=== PATIENT | male | born 1960 | race Caucasian/White ===

== ENCOUNTER → 2016-05-20 | Day surgery (SDC) | payer OTHER ==
[2016-05-10 10:27] VITALS: Ht 189.2 cm; Wt 125.0 kg
[2016-05-10 16:36] LABS: BASO % 0.3 %; BASO ABS # 0.03 K/uL (0-0.2); COMPLETE YES; EOS % 2.3 %; HEMATOCRIT 44.7 % (42-52); IG% 0.4 %; LYMPH % 27.3 %; LYMPH ABS # 2.54 K/uL (1.2-3.4); MEAN CELL VOLUME 86.3 fL (80-100); MEAN CORPUSCULAR HEMOGLOBIN 30.5 pg (25-34); MEAN CORPUSCULAR HGB CONC 35.3 g/dl (32-36); MEAN PLATELET VOLUME 10.8 fL (7.4-10.4); MONO % 4.7 %; PLATELET COUNT 269 K/uL (130-400); RED BLOOD COUNT 5.18 M/uL (4.7-6.1)
[2016-05-10 16:59] LABS: BUN/CREATININE RATIO 7.5 (10-20); CREATININE 1.1 mg/dl (0.60-1.40); POTASSIUM 3.8 mmol/L (3.5-5.1)
[~2016-05-20] VITALS: Ht 189.2 cm; Wt 125.0 kg
[~2016-05-20] MED LIST: ASPI81TA28 PO; ATROPINE SULFATE 0.1 MG/ML 5ML SYR IV PRN; CLINDAMYCIN PHOS 150 MG/ML 2 ML VIAL IV SCH; DEXAMETHASONE SOD INJ 4 MG/ML VIAL IV PRN; DEXAMETHASONE SOD INJ 4 MG/ML VIAL ONE; EpHEDrine SULFATE INJ 50 MG/ML AMP IV PRN; EpINEphrine INJ 1MG/ML AMP 1 MG/ML AMP ONE; FENTANYL CITRATE INJ 50 MCG/1 ML 2 ML VIAL IV PRN; FENTANYL CITRATE INJ 50 MCG/1 ML 2 ML VIAL ONE; HYDR-5688 PO; KETOROLAC TROMETHAMINE 30 MG/ML VIAL IV. PRN; KETOROLAC TROMETHAMINE 30 MG/ML VIAL ONE; LABETALOL HCL IV 5 MG/ML 20ML IV PRN; LACTATED RINGER'S 1000ML 1,000 ML IV SCH; LIDOCAINE HCL 2% 2 ML VIAL (20MG/ML) ONE; METOCLOPRAMIDE HCL INJ 5 MG/ML 2 ML VIAL IV PRN; MIDAZOLAM HCL 1 MG/ML 2ML VIAL ONE; MoRPHine SULFATE 10 MG/ML CARP/VIAL IV PRN; ONDANSETRON INJ 2 MG/ML 2 ML VIAL IV PRN; ONDANSETRON INJ 2 MG/ML 2 ML VIAL ONE; OXYCODONE/ACETAMINOPHEN 5-325 TAB PO PRN; PHENYLEPHRINE 100MCG/ML 5ML SYR IV PRN; PROPOFOL IV EMULSION 10 MG/ML 20 ML VIAL IV ONE; ROPIVACAINE 0.5% 5 MG/ML 30 ML VIAL ONE; SODIUM CHLORIDE 0.9% 1000ML 1,000 ML IV SCH
--- NOTE | 2016-05-20 07:00 | History & Physical Bridge - [place] ---
H&P Re-Evaluation Bridge Note: I have examined the patient, reviewed the History & Physical and in the interval since the performance of the History & Physical I have noted the following changes of clinical significance: No changes noted
--- NOTE | 2016-05-20 08:29 | Discharge Instructions-SurgCtr ---
Discharge Instructions Visit Reason for Visit: Left Knee Acute Medial Meniscal Tear Discharge Discharge Diagnosis / Problem: SAME ABOVE Discharge Goals Goal(s): Decrease discomfort, Improve function Activity Recommendations Activity Limitations: as noted below Lifting Limitations: until after follow-up appointment Exercise/Sports Limitations: until after follow-up appointment Driving or Machine Use: WHEN PAIN IS CONTROLLED AND OFF OF PAIN MEDICATION Weightbearing Status: Left weightbearing (as tolerated) Anesthesia . Post Anesthesia Instructions: If you have had General Anesthesia or IV Sedation: * Do not drive today. * Resume driving when surgeon permits. * Do not make important decisions or sign legal documents today. * Call surgeon for: 1. Temperature elevations greater than 101 degrees F. 2. Uncontrollable pain. 3. Excessive bleeding. 4. Persistent nausea and vomiting. 5. Medication intolerance (nausea, vomiting or rash). * For nausea and vomiting use only clear liquids such as: tea, soda, bouillon until nausea subsides, then gradually increase diet as tolerated. * If you have any concerns or questions, call your surgeon's office. If physician is unavailable and it is an emergency, call 911 or go to the nearest emergency room. . Instructions / Follow-Up Instructions / Follow-Up MEDICATIONS: * Resume previous medications unless instructed otherwise by your surgeon. * Always take pain medication on a full stomach or with food to avoid upset stomach. * Do not drink alcohol or drive while taking narcotics. * Ibuprofen or Tylenol may be taken if narcotic not needed. SPECIAL CARE INSTRUCTIONS: __ None _X_ Keep extremity elevated and iced x 48 hours; apply ice 20-30 minutes 8-10 times/day. May remove at night. _X_ Crutches _X_ May discard when able __ Brace/Post-op shoe __ 24 hrs/day __ Remove at night _X_ Dressing __ Maintain until seen in office, may shower with plastic over site _X_ Remove dressings in 48 hours and then may shower _X_ Cover incisions with band-aids after showering __ Do not remove steri-strips Call physician if chills or temperature rises above 102 degrees or pain unrelieved by prescribed pain medications. Office [phone] Diet Recommendations Home Diet: no limitations Fluid Restriction: None Procedures Procedures Performed: Left Knee Arthroscopy, Medial Meniscectomy Pending Studies Studies pending at discharge: no Work Instructions Return To Work: after follow-up Medical Emergencies . Who to Call and When: Medical Emergencies: If at any time you feel your situation is an emergency, please call 911 immediately. . Non-Emergent Contact Non-Emergency issues call your: Primary Care Provider Call Non-Emergent contact if: you have a fever, temperature is above 101.5 . . "Provider Documentation" section prepared by Ej Beauchamp.
--- NOTE | 2016-05-20 08:40 | OPERATIVE REPORT ---
DATE OF OPERATION: 05/20/2016 PREOPERATIVE DIAGNOSIS: Medial meniscal tear of the left knee. POSTOPERATIVE DIAGNOSIS: Same. PROCEDURE: Left knee diagnostic arthroscopy with partial medial meniscectomy. SURGEON: Dr. Rico Mixon. SENIOR SYSTEMS PROGRAMMER: Aurelio Beauchamp PA-C, whose assistance was necessary for positioning of the leg and helping with instrumentation. ANESTHESIA: General. COMPLICATIONS: None. CONDITION: Stable to PACU. INDICATIONS: Miguel is a pleasant 55-year-old male who presented to my office with a work-related injury to his left knee. MRI and clinical examination were diagnostic for medial meniscal tear of the left knee. After failing extensive conservative treatment, he elected to undergo arthroscopy. On 05/20/2016, he arrived at [facility] for the above procedure. He was seen in the preoperative holding area and the operative extremity was identified and signed. He was given a preoperative antibiotic and taken back to the operating room, laid on table in supine position, and put under general anesthesia. The left knee was prepped and draped in sterile fashion. A timeout was done, and the patient and operative extremity was properly identified. A scope was introduced in the lateral parapatellar portal. Diagnostic arthroscopy showed no cartilage damage within the trochlea. There were no loose bodies in the suprapatellar pouch. The scope was brought into the medial compartment, a medial parapatellar portal was made under direct visualization. There was a tear of the posterior medial meniscus. It was a horizontal tear and also had a small radial component. A shaver was used to remove the unstable pieces of meniscus and taken back to stable margins. A probe was used to confirm complete resection of the unstable fragments. There was no cartilage damage in the medial compartment. ACL and PCL were intact. The scope was brought in the lateral compartment and there was no meniscus or cartilage damage laterally. The scope was then placed in the contralateral portal. Repeat diagnostic arthroscopy showed no additional pathology. Arthroscopic instruments were removed from the knee. Portal sites were closed with 3-0 nylon. The knee was then injected with 30 mL of Naropin with epinephrine and Toradol. He was then placed in a soft compressive dressing, extubated, transferred to a litter and taken to the postanesthesia care unit in stable condition. He tolerated the procedure well. I attest to the content of the Intraoperative Record and any orders documented therein. Any exceptio ns are noted below.
--- NOTE | 2016-05-20 09:12 | Anesthesia Progress Nt - [facility] ---
Anesthesia Post Op Note Date & Time May 20, 2016 at 09:13 Vital Signs Pain Intensity: 0 Vital Signs Past 12 Hours Date Time Temp Pulse Resp B/P Pulse Ox O2 Delivery O2 Flow Rate FiO2 05/20/16 09:04 152/70 05/20/16 09:03 57 11 95 05/20/16 09:03 58 11 05/20/16 09:00 36.7 58 12 152/70 96 Room Air 05/20/16 08:59 171/93 05/20/16 08:58 59 13 05/20/16 08:58 57 13 96 05/20/16 08:54 144/80 05/20/16 08:53 59 12 96 05/20/16 08:53 59 12 05/20/16 08:49 129/77 05/20/16 08:48 54 0 100 05/20/16 08:48 55 0 05/20/16 08:44 135/81 05/20/16 08:43 56 0 05/20/16 08:43 56 0 100 05/20/16 08:39 142/70 05/20/16 08:38 62 15 100 05/20/16 08:38 63 15 05/20/16 08:34 128/79 05/20/16 08:33 58 9 05/20/16 08:33 58 9 98 05/20/16 08:29 147/81 05/20/16 08:28 36.2 63 12 143/82 99 Mask 6 05/20/16 08:28 64 05/20/16 08:28 64 96 05/20/16 06:46 36.4 63 20 140/96 98 Room Air Notes Mental Status: alert / awake / arousable, participated in evaluation Pt Amnestic to Procedure: Yes Nausea / Vomiting: adequately controlled Pain: adequately controlled Airway Patency, RR, SpO2: stable & adequate BP & HR: stable & adequate Hydration State: stable & adequate Anesthetic Complications: no major complications apparent
[2016-05-20 09:14] VITALS: TEMP 36.4
[2016-05-20 09:38] VITALS: BP 158/90; PULSE 59; O2SAT 97
== END | disposition home or self-care (01) ==
LOC: X.SURG 06:37
PROVIDERS: ATTEND Orthopaedic Surgery
DX: S83.242A Other tear of medial meniscus, current injury, left knee, initial encounter (principal); X58.XXXA Exposure to other specified factors, initial encounter; K21.9 Gastro-esophageal reflux disease without esophagitis; G47.30 Sleep apnea, unspecified; Z90.49 Acquired absence of other specified parts of digestive tract; Y93.89 Activity, other specified; Y92.89 Other specified places as the place of occurrence of the external cause; Y99.0 Civilian activity done for income or pay; Z98.890 Other specified postprocedural states; Z79.82 Long term (current) use of aspirin

== ENCOUNTER → 2016-06-17 | Outpatient (CLI) | payer OTHER ==
[~2016-06-17] MED LIST changes: -ATROPINE SULFATE 0.1 MG/ML 5ML SYR IV PRN; -CLINDAMYCIN PHOS 150 MG/ML 2 ML VIAL IV SCH; -DEXAMETHASONE SOD INJ 4 MG/ML VIAL IV PRN; -DEXAMETHASONE SOD INJ 4 MG/ML VIAL ONE; -EpHEDrine SULFATE INJ 50 MG/ML AMP IV PRN; -EpINEphrine INJ 1MG/ML AMP 1 MG/ML AMP ONE; -FENTANYL CITRATE INJ 50 MCG/1 ML 2 ML VIAL IV PRN; -FENTANYL CITRATE INJ 50 MCG/1 ML 2 ML VIAL ONE; -KETOROLAC TROMETHAMINE 30 MG/ML VIAL IV. PRN; -KETOROLAC TROMETHAMINE 30 MG/ML VIAL ONE; -LABETALOL HCL IV 5 MG/ML 20ML IV PRN; -LACTATED RINGER'S 1000ML 1,000 ML IV SCH; -LIDOCAINE HCL 2% 2 ML VIAL (20MG/ML) ONE; -METOCLOPRAMIDE HCL INJ 5 MG/ML 2 ML VIAL IV PRN; -MIDAZOLAM HCL 1 MG/ML 2ML VIAL ONE; -MoRPHine SULFATE 10 MG/ML CARP/VIAL IV PRN; -ONDANSETRON INJ 2 MG/ML 2 ML VIAL IV PRN; -ONDANSETRON INJ 2 MG/ML 2 ML VIAL ONE; -OXYCODONE/ACETAMINOPHEN 5-325 TAB PO PRN; -PHENYLEPHRINE 100MCG/ML 5ML SYR IV PRN; -PROPOFOL IV EMULSION 10 MG/ML 20 ML VIAL IV ONE; -ROPIVACAINE 0.5% 5 MG/ML 30 ML VIAL ONE; -SODIUM CHLORIDE 0.9% 1000ML 1,000 ML IV SCH
[2016-06-17 18:53] LABS: INFLUENZA A PCR Neg for Influ A (NEG); INFLUENZA B PCR Neg for Influ B (NEG)
== END | disposition home or self-care (01) ==
LOC: C.LABBC 15:18
PROVIDERS: ATTEND Family Medicine
DX: J06.9 Acute upper respiratory infection, unspecified (principal)

== ENCOUNTER 2016-07-02 14:18 | Observation (INO) | payer OTHER ==
[~2016-07-02] VITALS: Ht 188 cm; Wt 134.0 kg
[2016-07-02] MEDS ORDERED: ALUMINUM/MAGNESIUM SUSP 30 ML UDC PO STA (15:38)
[2016-07-02] MEDS ORDERED: ASPIRIN 81 MG CHEW PO STA (15:38)
--- NOTE | 2016-07-02 15:41 | EMERGENCY ROOM VISIT NOTE ---
History Report prepared by Wagner: Melecio Hinson Under the Supervision of: Dr. Leobardo Weiss D.O. First contact with patient: 15:26 Chief Complaint: CHEST PAIN Stated Complaint: CHEST PAIN Nursing Triage Summary: eft sided chest pain for several days that gets worse with deep breathing + SOB and [place] no nausea pt states that he cometimes gets pain into his left side of his neck and jaw no previous cardiac hx History of Present Illness The patient is a 55 year old male who presents to the Emergency Room with complaints of episodes of left-sided chest pain that started a week ago. He says he has episodes that last a couple minutes, once or twice per day. He describes the pain as sharp. During the episodes, he gets short of breath. He says that he has never had this kind of chest pain before. The patient says the pain radiated up to his neck and jaw during a couple of the episodes. He does not have any pain currently. He denies any abdominal pain or leg swelling. The patient notes that he had a stress test years ago. He is not currently on any daily medications. He was recently taken off of Lisinopril by his doctor. The patient is an ex-smoker, and drinks occasional alcohol. He has no history of clots in his lungs or legs. Source of History: patient Onset: A week ago Position: chest (left) Quality: sharp Timing: other (episodes) Associated Symptoms: + SOB, + neck pain, No abdominal pain Note: Associated symptoms: Jaw pain during a couple of episodes. Denies leg swelling. Review of Systems See HPI for pertinent positives & negatives. A total of 10 systems reviewed and were otherwise negative. Past Medical & Surgical Medical Problems: (1) Benign hypertension (2) Ulcerative colitis Family History Cancer Social History Smoking Status: Former Smoker Alcohol Use: none Drug Use: none Marital Status: Housing Status: lives with family Occupation Status: employed Current/Historical Medications No Active Prescriptions or Reported Meds Allergies Coded Allergies: Penicillins (Verified Allergy, Unknown, UNSURE, 05/20/16) Physical Exam Vital Signs Date Time Temp Pulse Resp B/P Pulse Ox O2 Delivery O2 Flow Rate FiO2 07/02/16 17:00 63 16 168/91 93 Room Air 07/02/16 16:03 96 Room Air 07/02/16 16:03 96 Room Air 07/02/16 15:51 66 07/02/16 15:49 66 16 181/95 96 07/02/16 14:21 36.7 66 18 177/86 95 Room Air Pain Rating (0-10): 1.0 Physical Exam GENERAL: Patient is awake, alert, and in no acute distress. Patient is resting comfortably and showing no signs of anxiety EYES: The conjunctivae are clear. The pupils are round and reactive. EARS, NOSE, MOUTH AND THROAT: The nose is without any evidence of any deformity. Mucous membranes are moist tongue is midline NECK: The neck is nontender and supple. RESPIRATORY: Normal respiratory effort is noted there is no evidence of wheezing rhonchi or rales CARDIOVASCULAR: Regular rate and rhythm noted there no murmurs rubs or gallops normal S1 normal S2 GASTROINTESTINAL: The abdomen is soft. Bowel sounds are present in all quadrants. Abdomen is nontender MUSCULOSKELETAL/EXTREMITIES: There is no evidence of gross deformity full range of motion is noted in the hips and shoulders SKIN: There is no obvious evidence of any rash. There are no petechiae, pallor or cyanosis noted. NEUROLOGIC: Patient is awake alert and oriented x3. Medical Decision & Procedures ER Provider Diagnostic Interpretation: X-ray results as stated below per interpretation by me and the radiologist. CHEST ONE VIEW PORTABLE CLINICAL HISTORY: CHEST PAIN dyspnea COMPARISON STUDY: 03/27/2016 FINDINGS: The bones soft tissues and hemidiaphragms are normal. The cardiomediastinal silhouette is normal. The lungs are clear. The pulmonary vasculature is normal. IMPRESSION: Negative chest. Electronically signed by: Denis Dias M.D. 07/02/2016 3:53 PM Dictated Date/Time: 07/02/2016 3:52 PM Laboratory Results 07/02/16 16:00 Red Blood Count 5.14, Mean Corpuscular Volume 84.0, Mean Corpuscular Hemoglobin 30.2, Mean Corpuscular Hemoglobin Concent 35.9, Mean Platelet Volume 10.3, Neutrophils (%) (Auto) 65.9, Lymphocytes (%) (Auto) 24.4, Monocytes (%) (Auto) 7.3, Eosinophils (%) (Auto) 1.7, Basophils (%) (Auto) 0.4, Neutrophils # (Auto) 6.10, Lymphocytes # (Auto) 2.26, Monocytes # (Auto) 0.68, Eosinophils # (Auto) 0.16, Basophils # (Auto) 0.04 07/02/16 16:00 Test 07/02/16 16:00 07/02/16 16:05 White Blood Count 9.27 K/uL (4.8-10.8) Red Blood Count 5.14 M/uL (4.7-6.1) Hemoglobin 15.5 g/dL (14.0-18.0) Hematocrit 43.2 % (42-52) Mean Corpuscular Volume 84.0 fL (80-100) Mean Corpuscular Hemoglobin 30.2 pg (25-34) Mean Corpuscular Hemoglobin Concent 35.9 g/dl (32-36) Platelet Count 258 K/uL (130-400) Mean Platelet Volume 10.3 fL (7.4-10.4) Neutrophils (%) (Auto) 65.9 % Lymphocytes (%) (Auto) 24.4 % Monocytes (%) (Auto) 7.3 % Eosinophils (%) (Auto) 1.7 % Basophils (%) (Auto) 0.4 % Neutrophils # (Auto) 6.10 K/uL (1.4-6.5) Lymphocytes # (Auto) 2.26 K/uL (1.2-3.4) Monocytes # (Auto) 0.68 K/uL (0.11-0.59) Eosinophils # (Auto) 0.16 K/uL (0-0.5) Basophils # (Auto) 0.04 K/uL (0-0.2) RDW Standard Deviation 38.4 fL (36.4-46.3) RDW Coefficient of Variation 12.7 % (11.5-14.5) Immature Granulocyte % (Auto) 0.3 % Immature Granulocyte # (Auto) 0.03 K/uL (0.00-0.02) Prothrombin Time 10.6 SECONDS (9.0-12.0) Prothromb Time International Ratio 1.0 (0.9-1.1) Activated Partial Thromboplast Time 26.1 SECONDS (21.0-31.0) Partial Thromboplastin Ratio 1.0 Anion Gap 8.0 mmol/L (3-11) Est Creatinine Clear Calc Drug Dose 121.5 ml/min Estimated GFR () 97.8 Estimated GFR (Non- 84.4 BUN/Creatinine Ratio 11.8 (10-20) Calcium Level 9.0 mg/dl (8.5-10.1) Total Bilirubin 0.5 mg/dl (0.2-1) Direct Bilirubin < 0.1 mg/dl (0-0.2) Aspartate Amino Transf (AST/SGOT) 19 U/L (15-37) Alanine Aminotransferase (ALT/SGPT) 53 U/L (12-78) Alkaline Phosphatase 89 U/L (45-117) Total Creatine Kinase 90 U/L (39-308) Creatine Kinase MB 0.6 ng/ml (0.5-3.6) Creatine Kinase MB Ratio 0.7 (0-3.0) Total Protein 7.0 gm/dl (6.4-8.2) Albumin 3.7 gm/dl (3.4-5.0) Lipase 105 U/L (73-393) Bedside Troponin I 0.000 ng/ml (0-0.045) Laboratory results per my review. Medications Administered Medications (Trade) Dose Ordered Sig/[place] Route Start Time Stop Time Status Last Admin Dose Admin Aspirin (Aspirin Chew) 324 mg NOW STAT PO 07/02/16 15:38 07/02/16 15:39 DC 07/02/16 16:24 324 MG Al Hydroxide/Mg Hydroxide (Maalox Susp) 30 ml NOW STAT PO 07/02/16 15:38 07/02/16 15:39 DC 07/02/16 16:24 30 ML ECG Indication: chest pain Rate (beats per minute): 65 Rhythm: normal sinus Findings: no ectopy, other (high lateral ST depressions with T-wave inversions noted, no acute ST segment abnormalities) Comparison ECG Date: changes are worsened compred to 05/10/16 Change: Repeat ECG: Normal sinus rhythm at 68 bpm, no ectopy, no acute ST segment abnormalities. Resolution of earlier noted ST abnormalities. 2nd Repeat ECG: Normal sinus rhythm at 60 bpm, no ectopy, no acute ST segment abnormalities. ED Course 1526: The patient was evaluated in room B4A. A complete history and physical examination were performed. 8: Ordered Maalox Susp 30 ml PO, Aspirin Chew 324 mg PO. 1648: I reevaluated the patient and he is resting comfortably. The patient verbally expressed understanding and agreement with the treatment plan. The patient will be evaluated for further treatment. 1700: I discussed the patient with Dr. Francisco [facility]. He will evaluate the patient for further treatment. Medical Decision Differential diagnosis: Etiologies such as cardiac ischemia, aortic dissection, pulmonary embolism, pneumonia, pneumothorax, musculoskeletal, infections, pericarditis, myocarditis , esophageal rupture, gastrointestinal, as well as others were entertained. Nursing notes reviewed. The patient is a 55-year-old male who presented to the emergency department for left-sided chest pressure. The patient has a history of hypertension. He is currently not taking medications for hypertension because of insurance issues. He started to notice left-sided chest pain which was sometimes noted in the left neck left jaw and left shoulder. The patient had an EKG in triage which revealed ischemic changes in the high lateral lead. This was repeated and showed improvement of ST segment abnormalities. The patient's pain appears to be improved at this time as well. He was treated with aspirin in the emergency department. He had multiple EKGs. His final EKG shows normal sinus rhythm. I discussed the patient's laboratory and radiographic studies with him. I also described the limitations of the emergency department workup for chest pain with him. Given his ischemic changes on EKG I do feel he would be a better candidate for inpatient workup. For this reason I discussed his case with the on -call [facility] hospitalist group. They've agreed to evaluate the patient in the emergency department for further management and disposition. Consults Time Called: 1650 Consulting Physician: Dr. Francisco perez Returned Call: 1700 I discussed the patient with Dr. Francisco perez. He will evaluate the patient for further treatment. Impression Primary Impression: Chest pain Additional Impression: Abnormal EKG Scribe Attestation The scribe's documentation has been prepared under my direction and personally reviewed by me in its entirety. I confirm that the note above accurately reflects all work, treatment, procedures, and medical decision making performed by me. Departure Information Dispostion Being Evaluated By Hospitalist Prescriptions No Active Prescriptions or Reported Meds Referrals Wilmer Grant D.O.Int.Med. (PCP) Patient Instructions [facility] Problem Qualifiers Primary Impression: Chest pain Chest pain type: unspecified Qualified Codes: R07.9 - Chest pain, unspecified
--- NOTE | 2016-07-02 15:55 | DIAGNOSTIC IMAGING REPORT ---
CHEST ONE VIEW PORTABLE CLINICAL HISTORY: CHEST PAIN dyspnea COMPARISON STUDY: 03/27/2016 FINDINGS: The bones soft tissues and hemidiaphragms are normal. The cardiomediastinal silhouette is normal. The lungs are clear. The pulmonary vasculature is normal. IMPRESSION: Negative chest. Electronically signed by: Denis Dias M.D. 07/02/2016 3:53 PM Dictated Date/Time: 07/02/2016 3:52 PM
[2016-07-02 16:21] LABS: BASO % 0.4 %; BASO ABS # 0.04 K/uL (0-0.2); COMPLETE YES; EOS % 1.7 %; HEMATOCRIT 43.2 % (42-52); IG% 0.3 %; LYMPH % 24.4 %; LYMPH ABS # 2.26 K/uL (1.2-3.4); MEAN CORPUSCULAR HEMOGLOBIN 30.2 pg (25-34); MEAN CORPUSCULAR HGB CONC 35.9 g/dl (32-36); MEAN PLATELET VOLUME 10.3 fL (7.4-10.4); MONO % 7.3 %; NEUT % 65.9 %; PLATELET COUNT 258 K/uL (130-400); RED BLOOD COUNT 5.14 M/uL (4.7-6.1); WHITE BLOOD COUNT 9.27 K/uL (4.8-10.8)
[2016-07-02 16:30] LABS: PROTHROMBIN TIME (PATIENT) 10.6 SECONDS (9.0-12.0)
[2016-07-02 16:43] LABS: ALT/SGPT 53 U/L (12-78); BLOOD UREA NITROGEN 12 mg/dl (7-18); BUN/CREATININE RATIO 11.8 (10-20); CARBON DIOXIDE 29 mmol/L (21-32); CHLORIDE 107 mmol/L (98-107); GLUCOSE 109 mg/dl (70-99)
[2016-07-02 16:48] LABS: ALKALINE PHOSPHATASE 89 U/L (45-117)
[2016-07-02 17:00] LABS: SODIUM 144 mmol/L (136-145)
[2016-07-02 17:02] LABS: AST/SGOT 19 U/L (15-37); CKMB/CK RATIO 0.7 (0-3.0)
[2016-07-02] MEDS ORDERED: HydrALAZINE HCL 20 MG/ML VIAL IV. PRN (19:00)
[2016-07-02] MEDS ORDERED: ACETAMINOPHEN 325 MG TAB PO PRN (19:00)
[2016-07-02] MEDS ORDERED: POLYETHYLENE (MIRALAX) 17 GM PACK PO PRN (19:00)
[2016-07-02] MEDS ORDERED: NITROGLYCERIN 0.4 MG SL PER TAB CHARGE SL PRN (19:00)
[2016-07-02] MEDS ORDERED: MAGNESIUM HYDROXIDE SUSP 30 ML UDC PO PRN (19:00)
[2016-07-02] MEDS ORDERED: ALUMINUM/MAGNESIUM/SIMETH (MAALOX MAX) 30 ML UDC PO PRN (19:00)
[2016-07-02] MEDS ORDERED: ONDANSETRON INJ 2 MG/ML 2 ML VIAL IV PRN (19:00)
--- NOTE | 2016-07-02 19:10 | History and Physical ---
History & Physical Date & Time of Service: Jul 02, 2016 at 18:53 Chief Complaint: Chest Pain Primary Care Physician: Wilmer Grant D.O.Int.Med. History of Present Illness Source: family, clinic records, hospital records Patient is a pleasant 55 y/o male, with PMHx of HTN, hyperlipidemia, prediabetic , and obesity, who presented to the ED because intermittent left-sided chest discomfort since 06/28. Pain is located under left breast. He describes the discomfort as a sharp pain and lasting approximately 5 minutes. Denies any exacerbating/alleviating factors. Patient recalls one episode where the pain radiated to his left jaw/neck. Currently, patient states he is feeling well with no chest discomfort. Patient admits to a h/o of HTN but states a few months back he started walking more and discontinued his medication. He denied any other PMHx (obtained additional information from [employer]). Patient admits to associated dizziness with chest discomfort. Patient denies any fever, chills, sweats, lightheadedness, vision changes, palpitations, edema, SOB, wheezing, cough, abdominal pain, nausea, vomiting, diarrhea, urinary symptoms, melena, numbness/tingling, weakness, muscle/joint pain, anxiety/depression, active bleeding, or new skin discoloration/changes. 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 ) Immunizations History of Influenza Vaccine: No History of Tetanus Vaccine?: No History of Pneumococcal: No History of Hepatitis B Vaccine: No Multi-Drug Resistant Organisms History of MDRO: No Allergies Coded Allergies: Penicillins (Verified Allergy, Unknown, UNSURE, 05/20/16) Home Medications No Active Prescriptions or Reported Meds Physical Exam Vital Signs Date Time Temp Pulse Resp B/P Pulse Ox O2 Delivery O2 Flow Rate FiO2 07/02/16 17:50 62 16 156/89 95 07/02/16 17:00 63 16 168/91 93 Room Air 07/02/16 16:03 96 Room Air 07/02/16 16:03 96 Room Air 07/02/16 15:51 66 07/02/16 15:49 66 16 181/95 96 07/02/16 14:21 36.7 66 18 177/86 95 Room Air General Appearance: no apparent distress, + obese Head: normocephalic, atraumatic Eyes: normal inspection ENT: hearing grossly normal Neck: supple Respiratory/Chest: lungs clear, no respiratory distress, no accessory muscle use Cardiovascular: regular rate, rhythm Abdomen/GI: normal bowel sounds, non tender, + distended Back: normal inspection Extremities/Musculoskelatal: no calf tenderness, no pedal edema Neurologic/Psych: alert, normal mood/affect, oriented x 3 Skin: normal color, warm/dry, no rash Diagnostics Laboratory Results Results Past 24 Hours Test 07/02/16 16:00 07/02/16 16:05 Range/Units White Blood Count 9.27 4.8-10.8 K/uL Red Blood Count 5.14 4.7-6.1 M/uL Hemoglobin 15.5 14.0-18.0 g/dL Hematocrit 43.2 42-52 % Mean Corpuscular Volume 84.0 80-100 fL Mean Corpuscular Hemoglobin 30.2 25-34 pg Mean Corpuscular Hemoglobin Concent 35.9 32-36 g/dl Platelet Count 258 130-400 K/uL Mean Platelet Volume 10.3 7.4-10.4 fL Neutrophils (%) (Auto) 65.9 % Lymphocytes (%) (Auto) 24.4 % Monocytes (%) (Auto) 7.3 % Eosinophils (%) (Auto) 1.7 % Basophils (%) (Auto) 0.4 % Neutrophils # (Auto) 6.10 1.4-6.5 K/uL Lymphocytes # (Auto) 2.26 1.2-3.4 K/uL Monocytes # (Auto) 0.68 0.11-0.59 K/uL Eosinophils # (Auto) 0.16 0-0.5 K/uL Basophils # (Auto) 0.04 0-0.2 K/uL RDW Standard Deviation 38.4 36.4-46.3 fL RDW Coefficient of Variation 12.7 11.5-14.5 % Immature Granulocyte % (Auto) 0.3 % Immature Granulocyte # (Auto) 0.03 0.00-0.02 K/uL Prothrombin Time 10.6 9.0-12.0 SECONDS Prothromb Time International Ratio 1.0 0.9-1.1 Activated Partial Thromboplast Time 26.1 21.0-31.0 SECONDS Partial Thromboplastin Ratio 1.0 Sodium Level 144 136-145 mmol/L Potassium Level 4.0 3.5-5.1 mmol/L Chloride Level 107 98-107 mmol/L Carbon Dioxide Level 29 21-32 mmol/L Anion Gap 8.0 3-11 mmol/L Blood Urea Nitrogen 12 7-18 mg/dl Creatinine 1.00 0.60-1.40 mg/dl Est Creatinine Clear Calc Drug Dose 121.5 ml/min Estimated GFR () 97.8 Estimated GFR (Non- 84.4 BUN/Creatinine Ratio 11.8 10-20 Random Glucose 109 70-99 mg/dl Calcium Level 9.0 8.5-10.1 mg/dl Total Bilirubin 0.5 0.2-1 mg/dl Direct Bilirubin < 0.1 0-0.2 mg/dl Aspartate Amino Transf (AST/SGOT) 19 15-37 U/L Alanine Aminotransferase (ALT/SGPT) 53 12-78 U/L Alkaline Phosphatase 89 45-117 U/L Total Creatine Kinase 90 39-308 U/L Creatine Kinase MB 0.6 0.5-3.6 ng/ml Creatine Kinase MB Ratio 0.7 0-3.0 Total Protein 7.0 6.4-8.2 gm/dl Albumin 3.7 3.4-5.0 gm/dl Lipase 105 73-393 U/L Bedside Troponin I 0.000 0-0.045 ng/ml Diagnostic Radiology CHEST ONE VIEW PORTABLE CLINICAL HISTORY: CHEST PAIN dyspnea COMPARISON STUDY: 03/27/2016 FINDINGS: The bones soft tissues and hemidiaphragms are normal. The cardiomediastinal silhouette is normal. The lungs are clear. The pulmonary vasculature is normal. IMPRESSION: Negative chest. Electronically signed by: Denis Dias M.D. 07/02/2016 3:53 PM Dictated Date/Time: 07/02/2016 3:52 PM The status of this report is Signed. Draft = Not yet reviewed or approved by Radiologist. Signed = Reviewed and approved by Radiologist. EKG LYDIA NIKHIL ID:[id number] 02-JUL-2016 17:07:36 [facility] Normal sinus rhythm Normal ECG When compared with ECG of 02-JUL-2016 15:21, (unconfirmed) No significant change was found 25mm/s 10mm/mV 150Hz 8.0 SP2 12SL 241 HD HEMA: 12 Referred by: Wilmer Grant Unconfirmed Vent. rate 60 BPM DE interval 174 ms QRS duration 102 ms QT/QTc 378/378 ms P-R-T axes 25 51 56 1960 (55 yr) Male 125i Room: Loc:15 Clinical Project Coordinator:Brooklyn Castro Test ind: NIKHIL FREEMAN ID:[id number] 02-JUL-2016 14:22:23 [facility] Normal sinus rhythm Left posterior fascicular block Nonspecific ST and T wave abnormality Abnormal ECG When compared with ECG of 10-MAY-2016 15:32, ST no longer elevated in Inferior leads Confirmed by MARGARET ELDER ([id number]) on 07/02/2016 3:52:33 PM 25mm/s 10mm/mV 150Hz 8.0 SP2 12SL 241 HEMA: 0 Referred by: Confirmed By: MARGARET ELDER Vent. rate 65 BPM DE interval 166 ms QRS duration 104 ms QT/QTc 368/382 ms P-R-T axes 36 146 145 1960 (55 yr) Male [address] Room: Loc:15 Clinical Project Coordinator:Opara Test ind: FREEMANFARZANAW ID:[id number] 02-JUL-2016 15:21:22 [facility] Normal sinus rhythm Normal ECG When compared with ECG of 02-JUL-2016 14:22, Left posterior fascicular block is no longer Present 25mm/s 10mm/mV 150Hz 8.0 SP2 12SL 241 HEMA: 0 Referred by: Wilmer Grant Unconfirmed Vent. rate 68 BPM DE interval 166 ms QRS duration 102 ms QT/QTc 380/404 ms P-R-T axes 22 53 56 1960 (55 yr) Male [address] Room: Loc:15 Clinical Project Coordinator:Opara Test ind: Impression Assessment and Plan 55 y/o male, with PMHx of HTN, hyperlipidemia, prediabetic, and obesity, who presented to the ED because intermittent left-sided chest discomfort since 06/28 Cardiac r/o: - Admit to tele observation for cardiac monitoring - Trend cardiac enzymes- initial trop negative - EKG w/ ?changes- repeat EKG tomorrow AM - Consult cardiology, appreciate recommendations--> ?stress tomorrow vs outpatient workup h/o hyperlipidemia; - Denies medications - Check lipid panel h/o prediabetes: Check ha1c h/o HTN: - Patient took himself off medication at the beginning of the year - Elevated BPs in ED--> will monitor overnight, ?due to anxious of situation; if remain elevated, patient will likely need placed back on HTN medication - Hydralazine 10 mg IV PRN GI Prophylaxis: Protonix daily, Maalox PRN, IV Zofran PRN, Colace and/or Milk of Mag PRN DVT prophylaxis: Lovenox 40 mg SQ q24 hrs, [place] and SCDs\ Code Status: LEVEL I, FULL Dispo: From home, lives w/ girlfriend. No discharge needs anticipated PA Physician Supervision Note: I interviewed and examined the patient. Discussed with Meghann OVALLES and agree with findings and plan as documented in the note. Any exceptions or clarifications are listed here: None Pt with cardiac risk factors and accelarated symptoms for the last week, lasting 5-10 mins and associated with some dizziness did have some transient t wave inversions seen in 1 and avl vitals stable car is regular lungs clear story is worrysome for angina, will have cardiology decide if stress or proceed to left heart cath if enzymes are negative Documented By: Indra Singh Level of Care Telemetry Resuscitation Status FULL RESUSCITATION VTE Prophylaxis VTE Risk Assessment Done? Y/N: Yes Risk Level: Low Given or contraindicated: Enoxaparin (Lovenox)SQ, T.E.D. Stockings, SCD's
[2016-07-02 19:42] VITALS: O2SAT 96
[2016-07-02 20:30] VITALS: BP 160/87; PULSE 60; TEMP 36.5; Ht 188 cm; Wt 134.0 kg
[2016-07-02] MEDS ORDERED: ENOXAPARIN 40 MG/0.4 ML SYR SC SCH (21:00)
[2016-07-02] MEDS ORDERED: IV FLUIDS COMPLETED PRN (22:30)
[2016-07-02 23:20] VITALS: BP 157/92; PULSE 59; TEMP 36.6; O2SAT 94
[2016-07-03 04:08] VITALS: BP 161/88; PULSE 52; TEMP 36.6; O2SAT 96
[2016-07-03 07:07] LABS: BLOOD UREA NITROGEN 11 mg/dl (7-18); BUN/CREATININE RATIO 10.6 (10-20); CALCIUM 9.2 mg/dl (8.5-10.1); CARBON DIOXIDE 31 mmol/L (21-32); CHLORIDE 104 mmol/L (98-107); GLUCOSE 98 mg/dl (70-99); MAGNESIUM 2.2 mg/dl (1.8-2.4); POTASSIUM 4.3 mmol/L (3.5-5.1); SODIUM 141 mmol/L (136-145)
[2016-07-03 07:13] LABS: CHOLESTEROL 216 mg/dl (0-200); CHOLESTEROL/HDL RATIO 7.4; HDL CHOLESTEROL 29 mg/dl; TRIGLYCERIDES 402 mg/dl (0-150)
[2016-07-03 07:17] LABS: ESTIMATED AVERAGE GLUCOSE 117 mg/dl; HA1C FLAG Normal (Normal)
[2016-07-03 07:56] VITALS: BP 154/94; PULSE 52; TEMP 36.4; O2SAT 98
[2016-07-03] MEDS ORDERED: PANTOprazole SOD 40 MG TAB PO SCH (09:00)
--- NOTE | 2016-07-03 09:30 | EXERCISE STRESS TEST ---
DATE OF SERVICE: 07/03/2016. The patient performed exercise using a standard Mario protocol and EKG surveillance. RESULTS: The patient was able to exercise for 9 minutes achieving 85% of the maximum predicted heart rate. Maximum blood pressure was 215/100. There were no notable EKG changes during exercise or recovery. The patient did not report any symptoms during the treadmill test. At the conclusion of the test the patient's blood pressure and heart rate had returned to normal. There were no immediate complications associated with the procedure. IMPRESSION: 1. Normal exercise treadmill test without evidence of inducible ischemia. 2. No symptoms during the test. 3. Rizzo Treadmill Score 9 which is low risk. 4. Hypertensive response to exercise.
--- NOTE | 2016-07-03 09:54 | CARDIOLOGY CONSULTATION ---
DATE OF CONSULTATION: 07/03/2016 DATE OF CONSULTATION: 07/03/2016. REFERRING PHYSICIAN: Dr. Levi Singh. CHIEF COMPLAINT: Chest pain. HISTORY OF PRESENT ILLNESS: Mr. Miguel Boone is a 55-year-old gentleman without a known history of coronary artery disease who presented to [facility] complaining of chest pain. These symptoms began approximately 1 week ago and are characterized by a sharp discomfort in the precordial area. The area in question is close to the left xiphoid border in the anterior chest. These episodes tend to happen at random and are not noted necessarily associated with exertion. They often take the patient's breath away as he describes it, but does not seem to produce overt dyspnea. The episodes themselves last for 1-5 minutes and then resolve spontaneously. These symptoms are fairly moderate in intensity. They occur approximately 2 times per day. The patient has not had similar symptoms in the past. He did complain of 1 episode of pain that involved the left shoulder, left neck and left jaw. This was similar in character, but not associated with chest pain at the time. This was also nonexertional in nature. He is otherwise active individual who likes to walk on a fairly regular basis. 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 He has not described symptoms with exertion such as ascending stairs or shoveling coal or bringing coal into his house which he uses for heat. The patient otherwise has not been ill recently. At the end of last year he did have influenza which was fairly severe at the time but he recovered without incident. He denies significant breathing difficulty. He has no orthopnea but does use CPAP at nighttime. He has not noticed any swelling in his lower extremities. He feels that he has gained some weight over a period of a year, perhaps 10-15 pounds. He occasionally notices a "flutter" sensation in the precordium which is rare and fleeting in nature, not associated with other symptoms. He otherwise has no sense of palpitations. He has no other symptoms of chest discomfort. Generally speaking he is not dizzy, lightheaded, and has not experienced a syncopal episode. PAST MEDICAL HISTORY: Significant for: 1. Hypertension, although recently his antihypertensives were stopped. 2. Hyperlipidemia. 3. Obstructive sleep apnea. 4. Arthritis. PAST SURGICAL HISTORY: Includes cholecystectomy and bilateral knee surgery. OUTPATIENT MEDICATIONS: None. MEDICAL ALLERGIES: PENICILLIN. SOCIAL HISTORY: No premature coronary disease in the family. The patient's sister at a young age of unclear circumstances. The patient is currently employed as a logging truck driver. He has a remote history of tobacco abuse, having quit 15 years ago. He has an occasional alcoholic beverage but does not drink heavily. REVIEW OF SYSTEMS: A complete 10-system review of systems was performed and the pertinent positives are noted in the history of present illness. The remainder being negative. No recent constitutional symptoms such as fevers or chills. He has not experienced a cough recently. He has been eating normally. He has no nausea or vomiting. He has rare heartburn for which he takes Tums. He does have a sleep apnea but uses CPAP religiously. He has not noticed any swelling in his lower extremities. He has not had any change in his bowel or bladder habits. PHYSICAL EXAMINATION: GENERAL: The patient does not appear to be in any acute distress. He is a pleasant individual who is alert and oriented. His mood and affect appeared normal. He answered all questions appropriately. CURRENT VITAL SIGNS: Include blood pressure 154/94 with a pulse of 52. HEAD, EYES, EARS, NOSE, AND THROAT: His sclerae are anicteric. His pupils were equal, reactive to light and accommodation. Extraocular movements were intact. Palpation of submandibular region did not reveal any significant lymphadenopathy. The carotids are palpable bilaterally. I do not appreciate any bruits on auscultation. There is no evidence of jugular venous distention. The thyroid was not enlarged. LUNGS: Auscultation of both lung juarez reveal them to be clear. There were no rales, wheezes or rhonchi. He had normal respiratory effort without use of accessory muscles. CARDIAC EXAMINATION: Revealed him to be in a regular rhythm. S1, S2 were normal. I did not appreciate any murmurs on exam. PMI was not markedly displaced on palpation. ABDOMEN: Soft and nontender. EXTREMITIES: Evaluation both wrists revealed radial pulses that were equal in intensity. There is no evidence of cyanosis or clubbing. Evaluation of lower extremities did not reveal any significant peripheral edema. He had some excoriations on his legs and arms, but there were no rashes appreciated. LABORATORY STUDIES: Obtained since admission include a white cell count 9.2, hemoglobin of 15.5, platelet count of 258. Serial cardiac biomarkers were all less than detectable limit. Sodium is 141, potassium is 4.3, BUN was 11, creatinine was 1. A single view chest x-ray was obtained at the time of admission. This did not reveal any evidence of acute cardiopulmonary disease and was essentially normal. Serial 12-lead EKGs were also obtained. I believe 1 of the EKGs had a limb lead reversal. The remainder appeared normal. ASSESSMENT AND PLAN: 1. Atypical chest pain. The patient certainly has some risk factors for coronary disease including his age, gender, hypertension and hyperlipidemia as well as a remote history of tobacco abuse. His symptoms however are less than typical as they do occur with rest, are fairly sharp in character and resolve without any particular intervention. He has normal cardiac biomarkers and EKG is essentially normal. I believe that the change in EKG described in his record simply reflects difference in technique, specifically limb lead reversal. It seems reasonable at this point to provide some form of risk stratification. I think this can be easily accomplished with a standard treadmill test given his good functional status and normal EKG. 2. Hypertension. The patient's blood pressures during this hospitalization are slightly elevated. He likely would benefit from continued antihypertensive use. 3. Hyperlipidemia. The patient should be treated according to currently published guidelines. FINAL RECOMMENDATIONS: Plan for exercise treadmill testing.
[2016-07-03 12:06] VITALS: BP 151/82; PULSE 69; TEMP 36.7; O2SAT 96
[2016-07-03 16:11] VITALS: BP 136/77; PULSE 62; TEMP 36.6; O2SAT 96
--- NOTE | 2016-07-03 17:18 | Discharge Instructions ---
Discharge Instructions Date of Service Jul 03, 2016. Admission Reason for Admission: Chest Pain Discharge Discharge Diagnosis / Problem: atypical chest pain Discharge Goals Goal(s): Improve function, Improve disease control, Learn about illness Activity Recommendations Activity Limitations: as noted below Lifting Limitations: gradually increase as tolerated Exercise/Sports Limitations: as tolerated May Resume Sexual Activity: when tolerated Shower/Bathe: no limitations Driving or Machine Use: no limitations . Instructions / Follow-Up Instructions / Follow-Up Patient is advised to follow-up with his PCP within a week. Current Hospital Diet Patient's current hospital diet: AHA Diet (Heart Healthy) Discharge Diet Recommended Diet: AHA Diet (Heart Healthy) Fluid Restriction: None Procedures Procedures Performed: none Pending Studies Studies pending at discharge: no Laboratory Results Hemoglobin A1c Test 07/03/16 06:15 Range/Units Estimated Average Glucose 117 mg/dl Hemoglobin A1c 5.7 H 4.5-5.6 % Lipid Panel Test 07/03/16 06:15 Range/Units Triglycerides Level 402 H 0-150 mg/dl Cholesterol Level 216 H 0-200 mg/dl HDL Cholesterol 29 mg/dl Cholesterol/HDL Ratio 7.4 LDL Cholesterol, Calculated mg/dl Work Instructions Return To Work: 3 days Lifting Limitations: none Medical Emergencies . Who to Call and When: Medical Emergencies: If at any time you feel your situation is an emergency, please call 911 immediately. . Non-Emergent Contact Non-Emergency issues call your: Primary Care Provider Call Non-Emergent contact if: you have a fever, your pain is worsening, your pain is unusual for you, your pain is concerning you . . "Provider Documentation" section prepared by Abran Young. VTE Core Measure Inpt VTE Proph given/why not?: Enoxaparin (Lovenox)ANNA, TNegroEAlysha Stockings, SCD's
--- NOTE | 2016-07-03 17:44 | Discharge Summary ---
Discharge Summary Date of Service Jul 03, 2016. Discharge Summary Admission Date: Jul 02, 2016 at 18:53 Discharge Date: Jul 03, 2016 Discharge Disposition: Home Principal Diagnosis: a typical chest pain Problems/Secondary Diagnoses: HTN DLP obesity Immunizations: Have You Had Influenza Vaccine: No History of Tetanus Vaccine?: No History of Pneumococcal: No History of Hepatitis B Vaccine: No Consultations: Cardiology Medication Reconciliation Medication Profile: No Active Prescriptions or Reported Meds Referrals At Discharge Follow up Referrals: Family Practice Referral - Within 1 Week with Wilmer Grant D.O.Int.Med. Discharge Exam Patient seen and examined by me. Patient denies chest pain, shortness of breath , dizziness, palpitation or loss of consciousness at the time of discharge. Patient is completely asymptomatic. Patient denies blurry vision and headache. Hospital Course 55 y/o male, with PMHx of HTN, hyperlipidemia, prediabetic, and obesity, who presented to the ED because intermittent left-sided chest discomfort. 1. Atypical chest pain. The patient certainly has some risk factors for coronary disease including his age, gender, hypertension and hyperlipidemia as well as a remote history of tobacco abuse. His symptoms however are less than typical as they do occur with rest, are fairly sharp in character and resolve without any particular intervention. He has normal cardiac biomarkers and EKG is essentially normal. Patient stress test was unremarkable. Patient is okay to discharge home per cardiology. 2. Hypertension. We advised patient to follow-up with his primary care physician for the management of hypertension. Patient blood pressure was elevated during hospitalization. 3. Hyperlipidemia. Management and treatment as per PCP. Total Time Spent: Greater than 30 minutes This includes examination of the patient, discharge planning, medication reconciliation, and communication with other providers. Discharge Instructions Discharge Goals Goal(s): Improve function, Improve disease control, Learn about illness Activity Recommendations Activity Limitations: as noted below Lifting Limitations: gradually increase as tolerated Exercise/Sports Limitations: as tolerated May Resume Sexual Activity: when tolerated Shower/Bathe: no limitations Driving or Machine Use: no limitations . Instructions / Follow-Up Instructions / Follow-Up Patient is advised to follow-up with his PCP within a week. Current Hospital Diet Patient's current hospital diet: AHA Diet (Heart Healthy) Discharge Diet Recommended Diet: AHA Diet (Heart Healthy) Fluid Restriction: None Procedures Procedures Performed: none Pending Studies Studies pending at discharge: no Laboratory Results Hemoglobin A1c Test 4/8/17 06:15 Range/Units Estimated Average Glucose 117 mg/dl Hemoglobin A1c 5.7 H 4.5-5.6 % Lipid Panel Test 07/03/16 06:15 Range/Units Triglycerides Level 402 H 0-150 mg/dl Cholesterol Level 216 H 0-200 mg/dl HDL Cholesterol 29 mg/dl Cholesterol/HDL Ratio 7.4 LDL Cholesterol, Calculated mg/dl Work Instructions Return To Work: 3 days Lifting Limitations: none Medical Emergencies . Who to Call and When: Medical Emergencies: If at any time you feel your situation is an emergency, please call 911 immediately. . Non-Emergent Contact Non-Emergency issues call your: Primary Care Provider Call Non-Emergent contact if: you have a fever, your pain is worsening, your pain is unusual for you, your pain is concerning you . . "Provider Documentation" section prepared by Abarn Young. VTE Core Measure Inpt VTE Proph given/why not?: Enoxaparin (Lovenox)SQ, T.E.D. Stockings, SCD's Please refer to the electronic Patient Visit Report (Discharge Instructions) for additional information. Follow-Up Medications (Trade) Dose Ordered Sig/[place] Route Start Time Stop Time Status Last Admin Dose Admin Enoxaparin Sodium (Lovenox Inj) 40 mg HS SC 07/02/16 21:00 08/01/16 20:59 07/02/16 23:39 40 MG Pantoprazole Sodium (Protonix Tab) 40 mg QAM PO 07/03/16 09:00 08/02/16 08:59 07/03/16 08:11 40 MG Additional Copies To Wilmer Grant D.O.Int.Med.
[2016-07-03 17:47] VITALS: BP 136/77; PULSE 62; TEMP 36.6; O2SAT 96
== END 2016-07-03 18:10 | disposition home or self-care (01) ==
LOC: ENRESERVDT → ENRESERVTM → C.EDB 14:19 → C.MED 18:53
PROVIDERS: ADMIT Internal Medicine; ATTEND Internal Medicine
DX: R07.89 Other chest pain (principal); R94.31 Abnormal electrocardiogram [ECG] [EKG]; I10 Essential (primary) hypertension; E66.9 Obesity, unspecified; E78.5 Hyperlipidemia, unspecified; G47.33 Obstructive sleep apnea (adult) (pediatric); R73.03 Prediabetes; K51.90 Ulcerative colitis, unspecified, without complications; M19.90 Unspecified osteoarthritis, unspecified site; Z87.891 Personal history of nicotine dependence; Z90.49 Acquired absence of other specified parts of digestive tract

== ENCOUNTER → 2017-05-17 | Outpatient (CLI) | payer OTHER ==
[~2017-05-17] VITALS: Ht 188 cm; Wt 131.8 kg
[2017-05-17 15:25] VITALS: BP 129/83; PULSE 75; Ht 188 cm; Wt 131.8 kg
== END | disposition home or self-care (01) ==
LOC: C.NEUR 13:50
PROVIDERS: ATTEND Physician Assistant Medical
DX: G47.33 Obstructive sleep apnea (adult) (pediatric) (principal)

== ENCOUNTER → 2017-05-25 | Outpatient (CLI) | payer OTHER ==
[2017-05-25 17:46] LABS: ALBUMIN 4.1 gm/dl (3.4-5.0); ALT/SGPT 75 U/L (12-78); AST/SGOT 31 U/L (15-37); BLOOD UREA NITROGEN 11 mg/dl (7-18); CARBON DIOXIDE 25 mmol/L (21-32); CREATININE 1.06 mg/dl (0.60-1.40); GLUCOSE 99 mg/dl (70-99); POTASSIUM 4.1 mmol/L (3.5-5.1); SODIUM 137 mmol/L (136-145)
[2017-05-25 17:57] LABS: ALKALINE PHOSPHATASE 86 U/L (45-117); CHOLESTEROL 194 mg/dl (0-200); LDL CHOLESTEROL CALCULATED 121 mg/dl; TOTAL PROTEIN 7.6 gm/dl (6.4-8.2)
[2017-05-26 06:58] LABS: HEMOGLOBIN A1C 5.5 % (4.5-5.6)
== END | disposition home or self-care (01) ==
LOC: C.LABBFT 13:17
PROVIDERS: ATTEND Internal Medicine
DX: R73.03 Prediabetes (principal); I10 Essential (primary) hypertension; N52.9 Male erectile dysfunction, unspecified; Z00.00 Encounter for general adult medical examination without abnormal findings; E78.5 Hyperlipidemia, unspecified

== ENCOUNTER 2024-07-27 13:40 | Inpatient (IN) ==
[2024-07-27 14:21] LABS: Basophils # (auto) 0.06 K/uL (0.00-0.20); Basophils % (auto) 0.5 %; Eosinophils # (auto) 0.01 K/uL (0.00-0.50); Eosinophils % (auto) 0.1 %; Hematocrit (blood only) 44.7 % (42.0-52.0); Hemoglobin 15.6 g/dl (14.0-18.0); Immature Granulocytes # (auto) 0.05 K/uL (0.01-0.20); Immature Granulocytes % (auto) 0.4 %; Lymphocytes # (auto) 0.67 K/uL (1.20-3.40); Lymphocytes % (auto) 5.3 %; Mean Corpuscular Hgb Conc 34.9 g/dL (32.0-36.0); Mean Platelet Volume 10.4 fL (9.4-12.4); Monocytes % (auto) 6.3 %; Neutrophils # (auto) 11.03 K/uL (1.40-6.50); Neutrophils % (auto) 87.4 %; Platelet Count 238 K/uL (130-400); RDW Coefficient of Variation 12.5 % (11.5-14.5); White Blood Count 12.62 K/ul (4.8-10.8)
[2024-07-27 14:40] LABS: Albumin Globulin Ratio 1.8 (0.9-2); Albumin Level 4.6 gm/dl (3.4-5.0); BUN Creatinine Ratio 11.3 (10-20); Bilirubin,Total 1.7 mg/dl (0.2-1.0); Calcium 9.5 mg/dl (8.6-10.3); Creatinine Clr Calc Pharmacy 101.4 ml/min; Globulin 2.6 gm/dl (2.5-4.0); Magnesium 1.9 mg/dl (1.7-2.4); Potassium 4.4 mmol/L (3.5-5.1); Total Protein 7.2 gm/dl (6.0-8.3)
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
--- NOTE | 2024-07-27 14:48 | CT Scan Report ---
CT head/brain wo con CLINICAL HISTORY: 63 years-old Male with syncope. Acute syncope TECHNIQUE: Multiple axial CT images of the head were obtained without contrast. A dose lowering tech nique was utilized adhering to the principles of ALARA. CT DOSE: 1100.35 mGy.cm COMPARISON: None. FINDINGS: No acute intracranial hemorrhage, midline shift, intra-axial mass, hydrocephalus, territorial ischemi a or abnormal extra-axial collection. Calcifications of the falx cerebri. Mild involutional changes. 9 mm extra-axial calcification adjacent to the posterior aspect of the falx cerebri on image 10 serie s 4, possibly a small meningioma. The calvarium is intact. The paranasal sinuses, mastoid air cells, and middle ear cavities are clear. IMPRESSION: No acute intracranial abnormality or calvarial fracture. ACT 112: Negative or not required by law. The above report was generated using voice recognition software. It may contain grammatical, syntax o r spelling errors. Electronically signed by: Quentin Tsang M.D. 07/27/2024 2:47 PM
--- NOTE | 2024-07-27 14:56 | XRay Report ---
XR chest 1V not portable HISTORY: 63 years-old Male syncope acute syncope COMPARISON: 06/16/2024 TECHNIQUE: PA view of the chest FINDINGS: Cardiomediastinal and hilar silhouettes are within normal limits. No pneumothorax, pleural effusion o r airspace consolidation. Spondylotic spurring of the spine. Bones appear grossly intact. IMPRESSION: No acute process. ACT 112: Negative or not required by law. The above report was generated using voice recognition software. It may contain grammatical, syntax o r spelling errors. Electronically signed by: Quentin Tsang M.D. 07/27/2024 2:55 PM
[2024-07-27 15:04] LABS: Phosphorus 3.2 mg/dl (2.5-4.9)
[2024-07-27] MEDS: SODIUM CHLORIDE 0.9% 1,000 ML IV ONE (15:08)
[2024-07-27 15:11] LABS: Troponin I High Sensitivity 4.4 pg/ml (0-20)
[2024-07-27 15:21] LABS: Thyroid Stimulating Hormone 1.972 uIu/ml (0.300-4.500)
[2024-07-27] MEDS: ASPIRIN CHEW 324 MG PO STA (15:57)
[2024-07-27 16:04] LABS: Influenza A virus by PCR Negative (Neg); Influenza B virus by PCR Negative (Neg); RSV by PCR Negative (Neg); SARS CoV2 RNA(COVID-19) Ceph NEGATIVE (Negative)
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
[2024-07-27] MEDS ORDERED: POLYETHYLENE (MIRALAX) 17 GM PACK PO PRN (21:27)
[2024-07-27] MEDS ORDERED: NITROGLYCERIN SL 0.4 MG/TAB TAB SL PRN (21:27)
[2024-07-27] MEDS ORDERED: ACETAMINOPHEN 325 MG TAB PO PRN (21:27)
[2024-07-27] MEDS ORDERED: MELATONIN 3 MG TAB PO PRN (21:27)
[2024-07-27] MEDS ORDERED: ONDANSETRON INJ 2 MG/ML 2 ML VIAL IV PRN (21:27)
[2024-07-27] MEDS ORDERED: ALUMINUM/MAGNESIUM SUSP 30 ML UDC PO PRN (21:27)
[2024-07-27] MEDS ORDERED: MAGNESIUM HYDROXIDE SUSP 30 ML UDC PO PRN (21:27)
[2024-07-27 22:26] LABS: Appearance Urine Clear (Clear); Bilirubin Urine Negative (Negative); Blood Urine Negative (Negative); Color Urine Yellow; Glucose Urine UA Negative (Negative); Ketones Urine Trace (Negative); Leukocyte Esterase Urine Negative (Negative); Nitrite Urine Negative (Negative); Protein Urine Negative (Negative); Specific Gravity Urine 1.013 (1.000-1.030); Urobilinogen Urine Negative (Negative); pH Urine 6.5 (4.5-7.5)
--- NOTE | 2024-07-27 23:04 | Electrocardiogram Report ---
Test Reason : Blood Pressure : */* mmHG Vent. Rate : 70 BPM Atrial Rate : 70 BPM P-R Int : 162 ms QRS Dur : 94 ms QT Int : 366 ms P-R-T Axes : 26 64 57 degrees QTcB Int : 395 ms Normal sinus rhythm Normal ECG When compared with ECG of 16-Jun-2024 07:27, No significant change was found Confirmed by Stuart Porter ([id number]) on 07/27/2024 11:03:56 PM Referred By: Confirmed By: Stuart Porter
[2024-07-27] MEDS: ATORVASTATIN 40 MG TAB PO SCH (23:35)
[2024-07-28 06:35] LABS: Albumin Globulin Ratio 1.9 (0.9-2); BUN Creatinine Ratio 15.6 (10-20); Bilirubin,Total 1.4 mg/dl (0.2-1.0); Calcium 8.8 mg/dl (8.6-10.3); Creatinine Clr Calc Pharmacy 118.3 ml/min; Globulin 2.1 gm/dl (2.5-4.0); Potassium 3.8 mmol/L (3.5-5.1); Total Protein 6.1 gm/dl (6.0-8.3)
[2024-07-28] MEDS: ASPIRIN 81 MG ECTAB PO SCH (09:01)
[2024-07-28] MEDS: lisinopril 40 MG TAB PO SCH (09:02)
[2024-07-28] MEDS: amLODIPine BESYLATE 5 MG TAB PO SCH (09:02)
[2024-07-28] MEDS: CLOPIDOGREL BISULFATE 75 MG TAB PO SCH (09:02)
[2024-07-28] MEDS: ISOSORBIDE MONO EXTENDED REL 30 MG TABCR PO SCH (09:02)
--- NOTE | 2024-07-28 14:09 | Cardiology Consultation ---
Date of Consultation July 28, 2024 Assessment & Plan (1) Near syncope: (2) ACS (acute coronary syndrome): (3) CAD (coronary artery disease): (4) Erectile dysfunction: (5) Severe obstructive sleep apnea: Plan Given his increased anginal pattern as well as the association of near syncope I recommended that he undergo heart catheterization on Tuesday. He is agreeable to have the diagnostic cath done here at [facility]. I do not suspect that there is issues with his recent ostial RCA stent as that would certainly produce EKG changes and ST elevation PR if there was a problem with that stent. It may be the distal circumflex disease that is continuing to cause him problems. In the meantime I recommended that we start him on a beta-tess to help control his angina. I would start him off with short acting tartrate so we can follow his heart rate. Continue aspirin Plavix nitrates as well as calcium channel tess. An LDL cholesterol of less than 50-60 is recommended for long-term prevention on statin. I will advise the Director Business Management and will see if Dr. Porter is available to do the cath on Tuesday. History of Present Illness Reason for Consultation: Increased anginal pattern Attending Physician: Michelle Joel MD History of Present Illness Mr. Miguel Boone is a 63-year-old gentleman with a history of known coronary artery disease he normally sees Philip Hutson in the office and has had heart catheterization by Dr. Jose Antunez in the past. His most recent cath was in October 2023 where he was found to have a complex ostial RCA lesion which was treated by the Director Business Management team at [facility]. He was also found to have a distal circumflex lesion which was not amenable to PCI and was treated medically. He did well up until May of this year when he started having increasing shortness of breath as well as chest discomfort. He was admitted to the hospital at that time and ruled out for PR but his symptoms have not improved. He presented to the emergency room because one of the most recent episodes of chest discomfort was associated with near syncope. After review of his medical record it is unclear why he is not on a beta-tess he denies prior history of having bradycardia to his knowledge related to medical therapy. He is on nitrates as well as calcium channel blockers. His EKG done here in the hospital does not show acute changes and thus far he is ruled out for PR. Allergies Allergy/AdvReac Type Severity Reaction Status Date / Time Penicillins Allergy Unknown UNSURE-PT Verified 07/27/24 16:49 STAYS AWAY FROM Home Medications Medication Instructions Recorded Confirmed Type clopidogrel 75 mg tablet (Plavix) 75 mg PO DAILY 11/16/23 07/27/24 History lisinopril 40 mg tablet 40 mg PO DAILY #90 tabs 03/22/24 07/27/24 Rx aspirin 81 mg tablet,delayed 81 mg PO DAILY 06/07/24 07/27/24 History release (Adult Aspirin Regimen) isosorbide mononitrate 30 mg 30 mg PO QAM #90 tabs 06/19/24 07/27/24 Rx tablet,extended release 24 hr amlodipine 5 mg tablet 7.5 mg (1.5 x 5 mg) PO DAILY #135 07/06/24 07/27/24 Rx tabs atorvastatin 40 mg tablet 40 mg PO HS 07/27/24 07/27/24 History nitroglycerin 0.4 mg sublingual 0.4 mg sublingual DIRECTED PRN 07/27/24 07/27/24 History tablet Chest Pain Patient History Medical History Angina pectoris Chest pain on exertion Palpitations Dyspnea on exertion 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 Ulcerative colitis (04/20/11) Joint effusion of knee Surgical History Stented coronary artery History of oral surgery H/O arthroscopic knee surgery History of appendectomy Family History Father Colorectal cancer Lung cancer Mother Mitral valve disorder Denies family history of Prostate cancer Social History Smoking Status: Former smoker Tobacco Type: Cigarettes Age Started Using Tobacco: 30; Age Quit Using Tobacco: 38; packs per day: 0.5; Smoking End Date: yrs ago; Second Hand Exposure: No; Do You Dip or Chew Tobacco: No; Hx Alcohol Use: No Hx Substance Use: No Preferred Language: Irish Hearing Ability: Normal Meter Tester Polyphase Required: No Beliefs That Will Affect Care: None marital status: Current Living Situation: Alone current occupational status: employed 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 Safe at Home: Yes Childhood Exposure to Second-Hand Smoke: Yes Diet: low carbohydrate and low salt Diet Comment: Fish,chicken Dental Care, Regularly: No Physical Activity Frequency: Daily Seatbelt Use: always Sunscreen Use: No Assistive Devices: Denture - Upper and Glasses Review of Systems Review of Systems: All systems reviewed & are unremarkable except as noted in HPI & below Physical Exam Physical Exam: Awake alert oriented in no distress Respiratory: Clear to auscultation Cardiovascular: Heart regular without new murmurs Results & Data Vital Signs (Past 12 Hours) Vital Signs Temp Pulse Pulse Resp BP Pulse Ox O2 Del Method 07/28/24 12:28 36.9 C 69 16 142/69 H 95 Room Air 07/28/24 08:06 36.8 C 56 L 16 134/72 96 Room Air 07/28/24 07:46 56 L 07/28/24 03:00 36.6 C 54 L 18 134/70 99 CPAP Laboratory Results Abnormal lab results 07/27/24 07/27/24 07/28/24 Range/Units 14:00 21:54 05:44 WBC 12.62 H (4.8-10.8) K/ul Neut # (Auto) 11.03 H (1.40-6.50) K/uL Lymph # (Auto) 0.67 L (1.20-3.40) K/uL [place] # (Auto) 0.80 H (0.11-0.59) K/uL Glucose 112 H 103 H (70-99(Fasting)) mg/dl Total Bilirubin 1.7 H 1.4 H (0.2-1.0) mg/dl Globulin 2.1 L (2.5-4.0) gm/dl Urine Ketones Trace H (Negative) (3) CAD (coronary artery disease) Coronary Disease-Associated Artery/Lesion type: unspecified vessel or lesion type [place] vs. transplanted heart: [place] heart Associated angina: unspecified whether angina present Qualified Code(s): I25.10 - Atherosclerotic heart disease of [place] coronary artery without angina pectoris
--- NOTE | 2024-07-28 15:05 | Hospitalist Progress Note ---
Date of Service July 28, 2024 Assessment & Plan (1) Near syncope: (2) Exertional chest pain: (3) CAD (coronary artery disease): (4) Severe obstructive sleep apnea: Plan 63-year-old man with known coronary artery disease, MORENITA to ostial RCA in October 2023 at [facility], 80% left circumflex lesion which is too small for PCI, recent onset of exertional angina middle of May 2024. He is admitted after an exertional presyncopal episode associated with angina # exertional chest pain (history of stable angina) and near syncope - exertional and associated with an anginal episode # CAD -serial troponins were all <5, last this am -no arrhythmias on tele thus far - check orthostatic vital signs -consulted cardiology - discussed with Dr. Dorman -I reviewed old charts and procedure notes extensively, I do not see a reason he cannot be tried on B-tess. -continue ASA, plavix, imdur, lisinopril, statin, amlodipine -metoprolol 25 mg bid started per cardiology recs -considering coronary angiogram for Tuesday # leukocytosis and mildly elevated bilirubin He is not having any infectious symptoms including no abdominal pain, no right upper quadrant pain, no history of gallbladder disease or liver disease. right upper quadrant is nontender to deep palpation. AST and ALT alk phos are normal. physical examination and other labs are not concerning for cirrhosis. - monitor for any specific signs and symptoms or abdominal pain - none thus far - bilirubin improved from 1.7-->1.4 and AST/ALT/ALKP remain normal. may be Gilbert's or related to cardiac condition #Severe obesity with BMI 34 # MANUEL - Ordered CPAP. DVT prophylaxisenoxaparin 40 mg qD Admission and Anticipated Discharge Date Admission Date: July 27, 2024 Subjective No further chest pain or lightheadedness but has not had any significant activity Reviewed tele overnight has been in sinus rhythm Physical Exam Physical Exam: Last 24h vitals reviewed GEN: no acute distress, lying in bed HEENT: pupils equal, sclerae anicteric, moist MM RESP: normal WOB CV: Cannot see neck veins because of large nam ABD: nondistended : no sanchez SKIN: warm and dry, no generalized rashes, no edema NEURO: AOx person, place, and situation. Face symmetric, speech normal, moves 4 ext spontaneously and equally Results & Data Results & Data Vital Signs (Past 12 Hours) Vital Signs Temp Pulse Pulse Resp BP Pulse Ox O2 Del Method 07/28/24 12:28 36.9 C 69 16 142/69 H 95 Room Air 07/28/24 08:06 36.8 C 56 L 16 134/72 96 Room Air 07/28/24 07:46 56 L 07/28/24 03:00 36.6 C 54 L 18 134/70 99 CPAP PG Care Time/CCT Total # of Minutes Spent Total Time Spent with Patient: Total time spent is greater than 50% in coordination of care (as documented) at patient's floor/unit and/or counseling patient: Coding Level of Care Code 66210 SUB INP/OBS CARE 2/35MIN Diagnoses Near syncope R55 Exertional chest pain R07.9 Coronary artery disease of [place] artery of [place] heart with stable angina pectoris I25.10 Coronary Disease-Associated Artery/Lesion type: unspecified vessel or lesion type [place] vs. transplanted heart: [place] heart Associated angina: unspecified whether angina present Severe obstructive sleep apnea G47.33 (3) CAD (coronary artery disease) Coronary Disease-Associated Artery/Lesion type: unspecified vessel or lesion type [place] vs. transplanted heart: [place] heart Associated angina: unspecified whether angina present Qualified Code(s): I25.10 - Atherosclerotic heart disease of [place] coronary artery without angina pectoris
[2024-07-28] MEDS: METOPROLOL TARTRATE 25 MG TAB PO SCH (21:56)
[2024-07-29 06:31] LABS: Hemoglobin 14.8 g/dl (14.0-18.0); Mean Corpuscular Hemoglobin 29.5 pg (25.0-34.0); Mean Corpuscular Hgb Conc 34.4 g/dL (32.0-36.0); Mean Corpuscular Volume 85.7 fL (80.0-100.0); Mean Platelet Volume 10.4 fL (9.4-12.4); Platelet Count 215 K/uL (130-400); RDW Coefficient of Variation 12.9 % (11.5-14.5); RDW Standard Deviation 39.8 fL (36.4-46.3); Red Blood Count 5.02 M/uL (4.70-6.10); White Blood Count 6.33 K/ul (4.8-10.8)
[2024-07-29 06:58] LABS: Albumin Globulin Ratio 1.7 (0.9-2); BUN Creatinine Ratio 17.4 (10-20); Bilirubin,Total 1.2 mg/dl (0.2-1.0); Creatinine Clr Calc Pharmacy 123.3 ml/min; Globulin 2.3 gm/dl (2.5-4.0); Potassium 4.2 mmol/L (3.5-5.1); Total Protein 6.3 gm/dl (6.0-8.3)
[2024-07-29] MEDS: ENOXAPARIN INJ 40 MG/0.4 ML SYR SQ SCH (09:01)
--- NOTE | 2024-07-29 10:47 | Cardiology Progress Note ---
Date of Service July 29, 2024 Assessment & Plan (1) Near syncope: (2) Bradycardia: (3) ACS (acute coronary syndrome): (4) CAD (coronary artery disease): Plan Given his increased anginal pattern as well as the association of near syncope I recommended that he undergo heart catheterization on Tuesday. He is agreeable to have the diagnostic cath done here at [facility]. I do not suspect that there is issues with his recent ostial RCA stent as that would certainly produce EKG changes and ST elevation MD if there was a problem with that stent. It may be the distal circumflex disease that is continuing to cause him problems. Unfortunately he is not can to tolerate any dose of beta-tess at this point. If we need to attempt to maximize further medical therapy we can either try increasing nitrates or adding ranolazine. One alternative approach could be to discuss permanent pacemaker insertion to allow for beta-tess therapy. Depending on the results of the catheterization I would consider consulting electrophysiology to get their opinion on this. I will advise the Boy'S Adviser and will see if Dr. Porter is available to do the cath on Tuesday. Admission and Anticipated Discharge Date Admission Date: July 28, 2024 Subjective Mr. Miguel Boone is a 63-year-old gentleman with a history of known coronary artery disease he normally sees Philip Hutson in the office and has had heart catheterization by Dr. Jose Antunez in the past. His most recent cath was in October 2023 where he was found to have a complex ostial RCA lesion which was treated by the [facility] team at [facility]. He was also found to have a distal circumflex lesion which was not amenable to PCI and was treated medically. He did well up until May of this year when he started having increasing shortness of breath as well as chest discomfort. He was admitted to the hospital at that time and ruled out for MD but his symptoms have not improved. He presented to the emergency room because one of the most recent episodes of chest discomfort was associated with near syncope. After review of his medical record it was unclear why he is not on a beta- tess he denies prior history of having bradycardia to his knowledge related to medical therapy. He is on nitrates as well as calcium channel blockers. He received a single dose of p.o. metoprolol tartrate last night and his heart rate went to 40 bpm. Subsequent doses have been held. I discussed with him alternative treatments such as trying to titrate up on the dose of his isosorbide however he does tell me he has had headaches with this. We can add ranolazine as well as an antianginal. I also did discuss with him this may be an indication for a permanent pacemaker to allow for beta-tess therapy. After we see what his catheterization looks like he may need to have a consultation with electrophysiology to discuss this. Review of Systems Review of Systems: All systems reviewed & are unremarkable except as noted in HPI & below Physical Exam Physical Exam: No change since yesterday Results & Data Vital Signs (Past 12 Hours) Vital Signs Temp Pulse Pulse Resp BP Pulse Ox O2 Del Method 07/29/24 07:59 36.7 C 49 L 20 118/69 97 Room Air 07/29/24 07:24 45 L 07/29/24 03:05 36.5 C 52 L 18 130/84 95 Room Air Laboratory Results Abnormal lab results 07/29/24 Range/Units 05:36 Total Bilirubin 1.2 H (0.2-1.0) mg/dl Globulin 2.3 L (2.5-4.0) gm/dl (4) CAD (coronary artery disease) Associated angina: unspecified whether angina present Coronary Disease- Associated Artery/Lesion type: unspecified vessel or lesion type [place] vs. transplanted heart: [place] heart Qualified Code(s): I25.10 - Atherosclerotic heart disease of [place] coronary artery without angina pectoris
--- NOTE | 2024-07-29 17:31 | Hospitalist Progress Note ---
Date of Service July 29, 2024 Assessment & Plan (1) Near syncope: (2) Exertional chest pain: (3) CAD (coronary artery disease): (4) Severe obstructive sleep apnea: Plan 63-year-old man with known coronary artery disease, MORENITA to ostial RCA in October 2023 at [facility], 80% left circumflex lesion which is too small for PCI, recent onset of exertional angina middle of May 2024. He is admitted after an exertional presyncopal episode associated with angina # exertional chest pain (history of stable angina) and near syncope - exertional and associated with an anginal episode # CAD -serial troponins were all <5 -no arrhythmias on tele thus far other than bradycardia after B-tess -proved to be intolerant to B-tess - I discontinued the metoprolol, was held this AM -continue ASA, plavix, imdur, lisinopril, statin, amlodipine -reviewed recs in Dr. Dorman's note -ranexa started for antianginal -anticipating coronary angiogram tomorrow, made npo after midnight # leukocytosis and mildly elevated bilirubin He is not having any infectious symptoms including no abdominal pain, no right upper quadrant pain, no history of gallbladder disease or liver disease. right upper quadrant is nontender to deep palpation. AST and ALT alk phos are normal. physical examination and other labs are not concerning for cirrhosis. -resolved. WBC normal and Bili 1.2 today which is normal. elevated bili may be Gilbert's or related to cardiac condition #Severe obesity with BMI 34 # MANUEL - Ordered CPAP. DVT prophylaxisenoxaparin 40 mg qD Admission and Anticipated Discharge Date Admission Date: July 28, 2024 Subjective No symptoms, no angina but hasn't been up to walk past the bathroom. No dyspnea. After one dose of metoprolol tartrate last night he was bradycardic to 40 Physical Exam 2 Physical Exam: Last 24h vitals reviewed GEN: sitting in bed watching TV HEENT: pupils equal, sclerae anicteric, moist MM RESP: normal WOB CTAB CV: reg no mrg Cannot see neck veins because of large nam ABD: nondistended : no sanchez SKIN: warm and dry, no generalized rashes, no edema NEURO: AOx person, place, and situation. Face symmetric, speech normal, moves 4 ext spontaneously and equally Results & Data Results & Data Vital Signs (Past 12 Hours) Vital Signs Temp Pulse Pulse Resp BP Pulse Ox O2 Del Method 07/29/24 15:36 36.8 C 58 L 16 113/64 96 Room Air 07/29/24 11:44 36.7 C 48 L 16 116/72 96 Room Air 07/29/24 07:59 36.7 C 49 L 20 118/69 97 Room Air 07/29/24 07:24 45 L Laboratory Results 07/29/24 05:36 07/29/24 05:36 Bilirubin 1.2, AST/ALT/AP normal PG Care Time/CCT Total # of Minutes Spent Total Time Spent with Patient: Total time spent is greater than 50% in coordination of care (as documented) at patient's floor/unit and/or counseling patient: Coding Level of Care Code 27725 SUB INP/OBS CARE 2/35MIN Diagnoses Near syncope R55 Exertional chest pain R07.9 Coronary artery disease of [place] artery of [place] heart with stable angina pectoris I25.10 Coronary Disease-Associated Artery/Lesion type: unspecified vessel or lesion type [place] vs. transplanted heart: [place] heart Associated angina: unspecified whether angina present Severe obstructive sleep apnea G47.33 (3) CAD (coronary artery disease) Coronary Disease-Associated Artery/Lesion type: unspecified vessel or lesion type [place] vs. transplanted heart: [place] heart Associated angina: u nspecified whether angina present Qualified Code(s): I25.10 - Atherosclerotic heart disease of [place] coronary artery without angina pectoris
[2024-07-29] MEDS: RANOLAZINE 500 MG ER TAB PO SCH (19:53)
--- NOTE | 2024-07-30 11:43 | Pre Anesthesia Assessment ---
Date of Service July 30, 2024 Pre Sedation Assessment Vital Signs Temp Pulse Pulse Pulse Resp BP Pulse Ox 07/30/24 09:49 56 L 14 152/77 H 98 07/30/24 07:20 97.5 F L 52 L 17 106/63 95 07/30/24 05:29 52 L 07/30/24 03:53 97.5 F L 49 L 20 118/70 95 07/30/24 02:36 62 71 H 97 07/30/24 00:01 98.1 F 48 L 20 118/66 97 07/29/24 23:10 70 17 96 07/29/24 22:00 51 L 07/29/24 19:43 98.4 F 51 L 20 120/68 95 07/29/24 18:25 63 07/29/24 15:36 98.2 F 58 L 16 113/64 96 07/29/24 11:44 98.1 F 48 L 16 116/72 96 O2 Del Method 07/30/24 09:49 Room Air 07/30/24 07:20 Room Air 07/30/24 05:29 07/30/24 03:53 Room Air, CPAP 07/30/24 02:36 07/30/24 00:01 Room Air 07/29/24 23:10 07/29/24 22:00 07/29/24 19:43 Room Air 07/29/24 18:25 07/29/24 15:36 Room Air 07/29/24 11:44 Room Air Cardiovascular + regular rate Respiratory + respiratory effort normal Pre-Sedation Airway Assessment Smoking Status: Former smoker Hx Sleep Apnea: No Hx Difficult Intubation: No Short, Thick Neck: No Thyromental Distance: > or= 3.5 Finger Breadths Oral Cavity: + Dentures Mallampati Class: III ASA: ASA3 NPO Status Date of Last Intake of Fluids: 07/29/24 Time of Last Intake of Fluids: 18:00 Date of Last Intake of Solid Food: 07/29/24 Time of Last Intake of Solid Foods: 18:00 Procedure Planning Contraindications for Sedation: none Current Medications Reviewed: Yes Notes The planned sedation has been discussed with the patient. Informed Consent was obtained. I have identified the patient, determined the appropriateness of sedation and have assessed the patient immediately prior to the procedure. All medicine(s) and interventions are by my order.
[2024-07-30] MEDS: niCARdipine 2,000 MCG/20 ML SYR ONE (12:32)
[2024-07-30] MEDS: IODIXANOL (VISIPAQUE) 320 MG/ML 100ML IV ONE (12:32)
[2024-07-30] MEDS: NITROGLYCERIN/D5W 100MCG/ML 20ML SYR ONE (12:32)
[2024-07-30] MEDS: OPTIRAY 350 ONE (13:15)
[2024-07-30] MEDS: HEPARIN (PORCINE) 1000 UNIT/ML 10 ML (CATH LAB USE ONLY) ONE (13:15)
[2024-07-30] MEDS: fentaNYL citrate PF 100 MCG/2 ML VIAL ONE (13:15)
[2024-07-30] MEDS: MIDAZOLAM HCL 1 MG/ML 2ML VIAL ONE (13:15)
--- NOTE | 2024-07-30 13:37 | Post Anesthesia Assessment ---
Date of Service July 30, 2024 Post Sedation Assessment Vital Signs Temp Pulse Pulse Pulse Resp BP Pulse Ox 07/30/24 09:49 56 L 14 152/77 H 98 07/30/24 07:20 97.5 F L 52 L 17 106/63 95 07/30/24 05:29 52 L 07/30/24 03:53 97.5 F L 49 L 20 118/70 95 07/30/24 02:36 62 71 H 97 07/30/24 00:01 98.1 F 48 L 20 118/66 97 07/29/24 23:10 70 17 96 07/29/24 22:00 51 L 07/29/24 19:43 98.4 F 51 L 20 120/68 95 07/29/24 18:25 63 07/29/24 15:36 98.2 F 58 L 16 113/64 96 O2 Del Method 07/30/24 09:49 Room Air 07/30/24 07:20 Room Air 07/30/24 05:29 07/30/24 03:53 Room Air, CPAP 07/30/24 02:36 07/30/24 00:01 Room Air 07/29/24 23:10 07/29/24 22:00 07/29/24 19:43 Room Air 07/29/24 18:25 07/29/24 15:36 Room Air Recovery Score Activity: Moves 4 extremities Respiration: Deep Breath/Cough Circulation: +/-20% PreAnes Value Consciousness: Fully Awake Oxygen Saturation: O2 needed for >90% Discharge Sedation Level of Care: Fast Track Phase II Post Sedation Plan On clinical assessment, the patient appears to have tolerated the sedation without complications. Patient is recovering as anticipated. Patient will continue to be monitored by nursing and may be discharged when sedation discharge criteria are met per below protocol. Upon Completions of procedure up to 15 minutes continue every 5 minute vital signs and the P.A.R. score; then discharge to a Phase I or Fast Track to Phase II per the following guidelines: * Discharge Patient to appropriate Phase II area if PAR is 8 or greater or return to pre- procedure baseline. The post - procedure orders will be as directed. * If PAR score is less than 8 or not return to pre-procedure baseline then patient will follow Phase I monitoring till PAR is reached for Phase II. The Phase I may be done in procedure room or may call to secure a Phase I area. * If naloxone or flumazenil are used for reversal, hold in Phase I for continued monitoring from when last reversal dose was given for a minimum of 60 minutes or longer pending the nurse and/or physician discretion of patient condition before discharge to Phase II. Please call the Sedation Physician to re-evaluate and complete post-note for discharge to Phase II area. Do NOT discharge from procedure sedation or Phase 1 until post- sedation evaluation note is complete by procedure /sedation MD Sedation Discharge Instructions to be given to the patient at discharge to home.
[2024-07-30] MEDS: diphenhydrAMINE 50 MG/ML VIAL ONE (14:03)
--- NOTE | 2024-07-30 14:12 | Cardiac Catheterization ---
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 Cardiac Status Clinical evaluation leading to the procedure CAD Presenation: Stable angina Anginal Classification: CCS III Diagnostic Physicians Name: Stuart Porter MD Closure Device Recommendations: Medical Therapy and/or Counseling and CABG Cardiac Cath Procedure Full Procedure Date July 30, 2024 Pre-Procedure Diagnosis Pre-Procedure Diagnosis: Angina and CAD AUC Score AUC Score: 07 Post-Procedure Diagnosis Post-Procedure Diagnosis: Severe CAD and Normal Intracardiac Pressures Procedure(s) Performed Procedure(s) Performed: Coronary Angiography, IVUS and Fractional Flow Edmondson Mold Operator Stuart Porter MD Wet Press Tender(s) Parker Estimated Blood Loss Estimated Blood Loss: 20 Medication(s) Medication(s): Fentanyl, Heparin, Lidocaine 1%, Nicardipine, Nitroglycerin and Versed Summary of Findings Indication: Recurrent angina. History of PCI with MORENITA to ostial RCA at [facility] 09/2023 Access: 6 Fr slender right radial artery Catheters: [place], EBU 3.5 guide Findings: LM - Normal caliber, long vessel, calcified, 4050% distal stenosis angiographically LAD -medium caliber, 20-30% ostial, 50% mid segment stenosis at takeoff of septal distal vessel without significant disease and wraps around apex. Medium D1 30-40% ostial Circumflex -medium caliber, proximal luminal irregularities, medium OM 2 without significant disease. Distal AV groove circumflex with 70% stenosis. Small left PLB without disease. RCA -dominant, medium caliber, 95% ostial in-stent restenosis, 40% in-stent restenosis at distal aspect of stent. Distal vessel and small RPDA without significant disease LVEDP -15 IVUS/IFR of left main Left main cannulated with EBU 3.5 guide Mejía Omni wire placed into mid LAD IFR 0.89, 0.84, 0.88 IVUS catheter placed to mid LAD. IVUS pullback revealed areas mid LAD heterogeneous plaque as well as eccentric calcified segments (MLA mid LAD 4.5 mm, 40 to 50% by IVUS). No significant ostial LAD stenosis. Distal to mid left main calcified disease (MLA 4.3 mm, stenosis 50 to 60% by IVUS). No significant ostial LMCA disease. Wire/catheter removed, no apparent complications post procedure. Arterial Closure: TR band Summary: 1. Multivessel coronary artery disease -95% ostial RCA in-stent restenosis 40-50% distal left main (significant by IVUS MLA 4.3 mm). 50% mid LAD (significant by IFR, MLA 4.5 mm by IVUS). 2. Normal intracardiac filling pressure Recommendations: We discussed revascularization options. Left main disease appears borderline angiographically but significant by intravascular imaging/IFR. With severe ostial RCA in-stent restenosis in only 8 months recommend evaluation for possible CABG. In the interim continue current antianginal therapy Imdur, amlodipine and new Ranexa. Hemodynamics Rest Ao:: 136/80/24 Final Ao: 136/60/93 LV: 116/15 Recommendations Recommendations: Medical Therapy and/or Counseling and CABG Radiation Exposure (mGy) 2020 Contrast (mls) 100 Anesthesia Moderate 0636-4040 Procedural Complication(s) None Disposition PCU I attest to the content of the Intraoperative Record and any orders documented therein. Any exceptions are noted below. [facility] Card Cath Procedure Codes Cardiac Catheterization Procedure 1: Cardiovascular Cath Procedures: 63077 Coronaries and LHC (+/-LV) Procedure 2: Cardiovascular Cath Procedures: 66429 (Doppler) Pressure Wire Therapeutic Services & Ancillary Procedure 1: Cardiovascular Tx and Anc Procedures: 61242 IV Ultrasound (Coronary or Graft) Moderate Sedation Procedure 1: Sedation/Anesthesia: 38543 Mod Sedation by the same physician;Init15 Min Child Age 5 & Up Procedure 2: Sedation/Anesthesia: 58575 Mod Sedation by the same physician; Ea [id number] Minutes PG Care Time/CCT Total # of Minutes Spent Total Time Spent with Patient: Total time spent is greater than 50% in coordination of care (as documented) at patient's floor/unit and/or counseling patient:
[2024-07-30 15:07] VITALS: BP 134/75; RESP 18; TEMP 97.7; O2SAT 94
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
[2024-07-30 17:16] VITALS: PULSE 56
--- NOTE | 2024-07-30 22:11 | Cardiology Progress Note ---
Date of Service July 30, 2024 Assessment & Plan (1) CAD (coronary artery disease): Plan: 95% ostial RCA in-stent restenosis. 50% distal left main, 50% mid LAD 2. Severe MANUEL 3. Hypertension Cardiac standpoint doing well. Okay to discharge this evening. Will arrange follow-up with [facility] cardiac surgery for CABG evaluation. Home on increased antianginal therapy with Ranexa. Continue prior amlodipine, Imdur. Continue DAPT until seen by cardiac surgery. Continue current statin Admission and Anticipated Discharge Date Admission Date: July 28, 2024 Subjective Feeling well postprocedure. No chest pain No other concerns Review of Systems Review of Systems: All systems reviewed & are unremarkable except as noted in HPI & below Physical Exam Physical Exam: General: Comfortable HEENT: Sclerae anicteric Vascular: Right radial artery access site with no ecchymosis, hematoma. Distal pulse and sensation intact. Extremities: Well perfused, no peripheral edema Neuro: Nonfocal Psych: Alert orient x3, normal affect and mood Results & Data Vital Signs (Past 12 Hours) Vital Signs Temp Pulse Pulse Pulse Resp BP Pulse Ox 07/30/24 17:14 97.7 F 56 L 60 18 134/75 94 07/30/24 15:04 97.7 F 60 18 134/75 94 07/30/24 14:52 97.5 F L 59 L 16 156/61 H 97 07/30/24 14:35 97.5 F L 55 L 18 156/68 H 97 07/30/24 14:22 57 L 07/30/24 14:18 97.5 F L 57 L 55 L 18 140/97 96 07/30/24 14:18 97.5 F L 55 L 18 140/97 96 07/30/24 13:39 97.8 F 53 L 18 166/69 H 97 O2 Del Method 07/30/24 17:14 07/30/24 15:04 Room Air 07/30/24 14:52 Room Air 07/30/24 14:35 Room Air 07/30/24 14:22 07/30/24 14:18 Room Air 07/30/24 14:18 Room Air 07/30/24 13:39 Room Air PG Care Time/CCT Total # of Minutes Spent Total Time Spent with Patient: Total time spent is greater than 50% in coordination of care (as documented) at patient's floor/unit and/or counseling patient: Coding Level of Care Code 61474 SUB INP/OBS CARE Diagnoses Coronary artery disease of [place] artery of [place] heart with stable angina pectoris I25.10 Coronary Disease-Associated Artery/Lesion type: unspecified vessel or lesion type [place] vs. transplanted heart: [place] heart Associated angina: unspecified whether angina present (1) CAD (coronary artery disease) Coronary Disease-Associated Artery/Lesion type: unspecified vessel or lesion type [place] vs. transplanted heart: [place] heart Associated angina: unspecified whether angina present Qualified Code(s): I25.10 - Atherosclerotic heart disease of [place] coronary artery without angina pectoris
== END 2024-07-30 17:50 | disposition home or self-care (01) | DRG 287 ==
LOC: SUATTDRO → ED 13:40 → EDINP 13:40 → 2N 22:41 → 2S 07-30 14:03